=== PATIENT | female | born 1955 | race Caucasian/White ===

== ENCOUNTER 2024-05-07 07:43 | Day surgery (SDC) | payer BC, MEDICARE ==
[2024-05-07] MEDS ORDERED: Propofol 200 MG/20 ML SDV IV ONE (07:44)
[2024-05-07] MEDS ORDERED: Midazolam 1 MG/ML 2 ML SDV IV ONE (07:44)
[2024-05-07] MEDS ORDERED: fentaNYL 100 MCG/2 ML SDV IV ONE (07:44)
[2024-05-07] MEDS ORDERED: Sodium Chloride 0.9% 10 ML Syringe FLUSH PRN (07:45)
[2024-05-07] MEDS: Lactated Ringers 1,000 ML IV SCH (08:45)
[2024-05-07] MEDS: Simethicone Drops 40 MG/0.6 ML 30 ML Bottle ONE (09:00)
== END 2024-05-07 10:30 | disposition home or self-care (01) ==
LOC: FB.SDS 07:43
PROVIDERS: ATTEND Surgery
DX: Z12.11 Encounter for screening for malignant neoplasm of colon (principal); K63.5 Polyp of colon; K62.1 Rectal polyp; E78.5 Hyperlipidemia, unspecified; F32.A Depression, unspecified; Z79.82 Long term (current) use of aspirin; Z79.899 Other long term (current) drug therapy; Z88.5 Allergy status to narcotic agent
CPT/HCPCS: 00811; 45385; 88305; A9270; J2250; J2704; J3010; J7120